=== PATIENT | male | born 1970 | race Two or more races ===

== ENCOUNTER 2018-02-18 20:27 | Emergency (ER) | payer SELFPAY ==
[~2018-02-18] VITALS: Ht 172.7 cm; Wt 86.2 kg
[2018-02-18 20:27] VITALS: BP 128/82
--- NOTE | 2018-02-18 20:50 | Emergency Room Report ---
History of Present Illness General Chief Complaint: Alcohol Intoxication Source: Patient Present Illness HPI Mr. Cueto is a healthy 47 yo male who presents with acute alcohol intoxication. A good restorationist called 911 to assist Mr. Cueto who was sleeping on a bench outside. Empty bottles of alcohol were discovered near patient by EMS. He denies any pain or concerns. He has black eyes because he explains "[place] That is why my eyes are black." Denies recent trauma. Belgian interpretation provided by ED staff members Allergies: Coded Allergies: No Known Allergies (Unverified , 02/18/18) Patient History Limited by: language barrier Past Medical History: none Past Surgical History: none Social History: Reports: alcohol use Social History Narrative "[place] the [place]." Reviewed Nursing Documentation: PMH: Agreed; PSxH: Agreed Nursing Documentation-PMH Past Medical History: No Stated History Review of Systems Constitutional: Denies: fever, malaise Cardiovascular: Denies: chest pain Gastrointestinal: Denies: abdominal pain Skin: Denies: rash Neurological: Denies: headache All Other Systems: negative except mentioned in HPI Physical Exam Vital Signs Date Time Temp Pulse Resp B/P (MAP) Pulse Ox O2 Delivery O2 Flow Rate FiO2 02/18/18 20:21 99.1 72 14 136/84 97 Room Air Sp02 EP Interpretation: reviewed, normal General Appearance: GCS 15, non-toxic, other - awake but appears intoxicated, disheveled clothing, pants wet with urine Head: normocephalic, other - bilateral periorbital ecchymosis Eyes: bilateral eye EOMI ENT: hearing grossly normal, normal pharynx, no angioedema, normal voice Neck: full range of motion, supple/symm/no masses Respiratory: chest non-tender, lungs clear, normal breath sounds, speaking full sentences Cardiovascular #1: regular rate, rhythm, no edema, no gallop, no JVD Cardiovascular #2: 2+ dorsalis pedis (L) Gastrointestinal: normal bowel sounds, non tender, soft, no mass, no organomegaly, no peritonitis, no bruit, non-distended, no guarding, no rebound Musculoskeletal: other - unsteady gait Neurologic: oriented x3, responsive, motor strength/tone normal, sensory intact , speech normal Psychiatric: judgement/insight normal, memory normal Skin: normal color, no rash, warm/dry, well hydrated Medical Decision Making Diagnostic Impression: Primary Impression: Acute alcoholic intoxication Additional Impressions: Closed head injury Black eye of left side Black eye of right side ER Course Mr. Cueto presents with acute alcohol intoxication. CT head ordered with hx of trauma according to physical exam. Black eyes from physical exam appeared to have occurred several days ago. CT head without acute traumatic process. Awaiting sobriety. My colleague will discharge patient once sober. IVF hydration provided. Last Vital Signs Date Time Temp Pulse Resp B/P (MAP) Pulse Ox O2 Delivery O2 Flow Rate FiO2 02/18/18 20:21 99.1 72 14 136/84 97 Room Air Disposition: HOME, SELF-CARE Condition: Stable Pari Storey MD Feb 18, 2018 20:50
--- NOTE | 2018-02-18 21:47 | Diagnostic Imaging Report ---
EXAM: CT Head Without Intravenous Contrast CLINICAL HISTORY: TRAUMA TECHNIQUE: Axial computed tomography images of the head/brain without intravenous contrast. CTDI is 70 mGy and DLP is 1245 mGy-cm. One or more of the following dose reduction techniques were used: automated exposure control, adjustment of the mA and/or kV according to patient size, use of iterative reconstruction technique. COMPARISON: No relevant prior studies available. FINDINGS: Brain: Unremarkable. No hemorrhage. No edema. Ventricles: Unremarkable. No ventriculomegaly. Bones/joints: Unremarkable. No acute fracture. Soft tissues: Unremarkable. Sinuses: Unremarkable as visualized. Mastoid air cells: Unremarkable as visualized. IMPRESSION: No acute intracranial abnormality.
[2018-02-18 22:27] VITALS: BP 113/63
[2018-02-19 00:20] VITALS: BP 120/69
[2018-02-19 02:10] VITALS: BP 118/73
[2018-02-19 04:05] VITALS: BP 129/74
[2018-02-19 05:35] VITALS: BP 123/76
== END 2018-02-19 05:36 | disposition home or self-care (01) ==
LOC: EDBD 20:27 → EMR 21:10
DX: F10.129 Alcohol abuse with intoxication, unspecified (principal); S05.12XA Contusion of eyeball and orbital tissues, left eye, initial encounter; S05.11XA Contusion of eyeball and orbital tissues, right eye, initial encounter; X58.XXXA Exposure to other specified factors, initial encounter; Y92.488 Other paved roadways as the place of occurrence of the external cause; Z59.0 Homelessness
CPT/HCPCS: 36415; 70450; 96360; 99284; G0480; 80329